=== PATIENT | male | born 1990 | race Caucasian/White ===

== ENCOUNTER → 2019-10-23 09:44 | Outpatient (BNVA) | payer MEDICAID, SELFPAY | PROVIDERS: Family Provider Family Medicine; PCP Family Medicine; Visit Provider Psychiatry & Neurology Psychiatry | DX: F63.81 Intermittent explosive disorder (principal); F70 Mild intellectual disabilities; F17.200 Nicotine dependence, unspecified, uncomplicated | CPT/HCPCS: 99213 ==

== ENCOUNTER → 2020-01-15 07:21 | Outpatient (BNVA) | payer MEDICAID, SELFPAY | PROVIDERS: Family Provider Family Medicine; PCP Family Medicine; Visit Provider Psychiatry & Neurology Psychiatry | DX: F63.81 Intermittent explosive disorder (principal); F70 Mild intellectual disabilities; F17.200 Nicotine dependence, unspecified, uncomplicated | CPT/HCPCS: 99213 ==

== ENCOUNTER → 2020-03-04 07:31 | Outpatient (BNVA) | payer MEDICAID, SELFPAY | PROVIDERS: Family Provider Family Medicine; PCP Family Medicine; Visit Provider Psychiatry & Neurology Psychiatry | DX: F63.81 Intermittent explosive disorder (principal); F70 Mild intellectual disabilities; F17.200 Nicotine dependence, unspecified, uncomplicated | CPT/HCPCS: 99214 ==

== ENCOUNTER 2020-03-19 19:10 | Inpatient (IN) | payer MEDICAID, SELFPAY ==
[2020-03-19 19:13] VITALS: BP 130/81; PULSE 125; RESP 20; TEMP 37.3; O2SAT 95; BMI 20.5
--- NOTE | 2020-03-19 19:22 | ECG_ITS ---
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 Measurements Intervals [place] Rate: 119 P: 67 NH: 112 QRS: 87 QRSD: 87 T: 49 QT: 294 QTc: 414 Interpretive Statements SINUS TACHYCARDIA WITH SHORT NH INTERVAL POSSIBLE RIGHT VENTRICULAR CONDUCTION DELAY [RSR (QR) IN V1/V2] No previous ECG available for comparison Electronically Signed On 03-20-2020 17:09:20 CDT by Jeniffer Holland M.D. [id number]
--- NOTE | 2020-03-19 19:30 | PC.NURSE ---
DENIES ANY SI OR HI. COAL WEIGHER STATES HE HAS BECOME FOR VIOLENT ANGRY THEN DEPRESSED WITH CRYING.
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
[2020-03-19] MEDS: CLONazepam 1 mg Tablet 0.5 MG PO (19:42)
[2020-03-19 20:08] LABS: Basophils # 0.1 10^3/uL (0.0-0.1); Basophils % 0.5 %; Eosinophils % 0.2 %; Hematocrit 47.5 % (42.0-52.0); Hemoglobin 15.4 g/dL (11.7-16.6); Lymphocytes # 1.4 10^3/uL (0.8-4.8); Lymphocytes % 11.4 %; Mean Corpuscular HGB Conc 32.4 g/dL (30.0-36.0); Mean Corpuscular Hemoglobin 28.9 pg (28.0-34.0); Mean Corpuscular Volume 89.3 fL (80-94); Mean Platelet Volume 10.6 fL (7.4-10.4); Monocytes # 0.5 10^3/uL (0.2-0.9); Monocytes % 4.2 %; Neutrophils # 10.4 10^3/uL (1.8-7.7); Neutrophils % 83.3 %; Nucleated Red Blood Cells % 0 %; Platelet Count 264 10^3/cmm (130-400); Red Blood Count 5.32 10^6/uL (4.1-5.3); Red Cell Distribution Width 13.4 % (12.1-15.1); White Blood Count 12.4 10^3/uL (4.0-10.0)
[2020-03-19 20:35] LABS: Alanine Aminotransferase 32 U/L (0-41); Albumin Level 5.6 g/dL (3.5-5.2); Alkaline Phosphatase 100 IU/L (40-130); Anion Gap 17.1 (5-19); Aspartate Amino Transferase 22 U/L (0-40); Blood Urea Nitrogen 12 mg/dL (6-20); Carbon Dioxide 27 mmol/L (22-29); Chloride 102 mmol/L (98-107); Glucose 95 mg/dL (65-115); Osmolality Calculated 290 mOsm/kg (285-295); Phenytoin Dilantin 0.8 ug/mL (10-20); Potassium 4.1 mmol/L (3.5-5.1); Sodium 142 mmol/L (136-145); Thyroid Stimulating Hormone 0.48 uIU/mL (0.27-4.20); Total Bilirubin 0.3 mg/dL (0.15-1.2); Total Protein 7.6 g/dL (6.6-8.7); Valproic Acid Level 2.8 ug/mL (50-100)
[2020-03-19 20:37] LABS: Acetaminophen < 5.0 ug/mL (10-30); Alcohol Level < 10 mg/dL (0-10); Salicylate < 0.3 mg/dL (3-10)
[2020-03-19 20:51] LABS: Lithium 0.1 mmol/L (0.6-1.2)
[2020-03-19] MEDS: LORazepam 2 mg Tablet PO (22:36)
[2020-03-19 22:49] VITALS: BP 124/89; PULSE 112; RESP 16; O2SAT 98
[2020-03-19 23:45] LABS: Amphetamines Screen Urine Negative (Negative); Barbiturates Screen Urine Negative (Negative); Benzodiazepines Screen Urine Negative (Negative); Cocaine Screen Urine Negative (Negative); Opiate Screen Urine Negative (Negative); PCP Screen Urine Negative (Negative); THC Screen Urine Negative (Negative)
[2020-03-19 23:54] VITALS: BP 108/75; PULSE 95; RESP 15; TEMP 36.8; O2SAT 97
--- NOTE | 2020-03-20 04:46 | PC.NURSE ---
when pt arrived to floor, prn sleep and anxiety meds were offered, pt refused.
[2020-03-20 06:00] VITALS: BP 102/67; PULSE 83; RESP 16; TEMP 36.6; O2SAT 99
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
[2020-03-20] MEDS: quetiapine 100 mg Tablet PO (11:05)
[2020-03-20] MEDS: cetirizine 10 mg Tablet PO (11:05)
[2020-03-20] MEDS: OLANZapine 5 mg ODT PO (13:50)
--- NOTE | 2020-03-20 13:55 | PC.SOCIAL ---
guardian says that he is good with a prn for Madan at any time regardless if Madan wants it or not. guardian is ok with him being discharged whenever the doctor states he is ready for discharge. the guardian is good with medication changes as ordered by doctor.
[2020-03-20 14:00] VITALS: BP 96/63; PULSE 92; RESP 18; TEMP 36.7; O2SAT 99
--- NOTE | 2020-03-20 14:03 | PC.NURSE ---
Patient Behavior The physician went into the patients room to discuss plan of care. Patient had been demanding to go home and he told him it would not be today that he needed to adjust his medications. Patient was becoming agitated, posturing and gritting his teeth. Security and journeyman powerhouse operator were on stand by. After the physician left the room he was offered medication for his anxiety and agreed to take Zyprexa Zydis.
[2020-03-20] MEDS: quetiapine 100 mg Tablet 250 MG PO (21:41)
[2020-03-20 22:00] VITALS: BP 95/59; PULSE 57; RESP 18; TEMP 36.8; O2SAT 98
[2020-03-21 06:00] VITALS: BP 87/50; PULSE 69; RESP 18; TEMP 36.7; O2SAT 99
[2020-03-21] MEDS: cetirizine 10 mg Tablet PO (08:46)
[2020-03-21] MEDS: quetiapine 100 mg Tablet PO (08:46)
--- NOTE | 2020-03-21 10:03 | PM.NPN ---
Subjective NPU Subjective: Interval history: Madan presents today reporting that he has managed the issue of having to stay, but when he was advised that he probably would not leave until tomorrow, his frustration returned, and he continued with the style of yesterday of saying ?you need to get my stuff together, I am leaving now?. Ultimately though he was able to calm himself. We agreed that we would continue the Zyprexa that he took as a prn yesterday, as he said he feels it was helpful. He has an appointment with his psychiatrist next week and the plan would be for them to figure out if they really feel like the Seroquel is more or less only helpful for sleep, then they could possibly use the Zyprexa as the standing medication. He slept fairly well last night. 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 We had a long discussion about the side effects of medications and how he thinks of them, and he seemed to benefit from our discussion of how they come up with those lists of side effects as things that could happen but not things that will happen. Mental Status Exam MSE Comments: This is a diminutive, white male, with adequate dress, grooming, and eye contact. No abnormal movements except for mild psychomotor retardation. Cooperative with exam in no acute distress. Speech was normal rate, slightly decreased volume. Mood described as better; affect congruent. Thought process, linear. Thought content: patient denied any suicidal or homicidal ideation, there were no delusions reported or noted, patient denied any auditory or visual hallucinations. Attention and concentration were intact, and memory appeared reliable. Insight and judgment are limited, and intellectual ability is impaired. Vitals/I&O/Wt Last Vital Signs Temp 98.0 F 03/21/20 22:00 Pulse 63 03/21/20 22:00 Resp 18 03/21/20 22:00 BP 114/76 03/21/20 22:00 Pulse Ox 98 03/21/20 22:00 Data NPU : 03/19/20 19:55 03/19/20 19:55 A&P Additional A&P Information (1) Acute anxiety: (2) Mild intellectual disability: (3) Intermittent explosive disorder: (4) Continuous nicotine dependence: This is a 29 year old, white male, with intermittent explosive disorder, intellectual disability, mild and nicotine dependence, who presents with recent struggles at his residential with managing his outbursts, who presents relatively resistant to collaboration with the treatment team. Continue current medication. Continue Zyprexa 5 mg q. afternoon and allow that he had his outpatient provider to decide whether he likes the Zyprexa better than the Seroquel and what adjustments to make next week. Encourage individual, group, and milieu therapy. Will continue q 15-minute checks for safety. Involuntary Hold Information 96 Hour Hold: 96 Hour Involuntary Admission: No Attestations NPU Medical Necessity Statement*: Inpatient hospitalization is medically necessary, and the clinically appropriate intervention at this time. We will monitor medications and adjust as indicated. Likely length of stay 1-3 days. We will consider discharge tomorrow. Coding Level of Care Code Acute Prescriptionist for Tahir Acevedo
[2020-03-21] MEDS: OLANZapine 5 mg TABLET PO (12:37)
[2020-03-21 13:18] VITALS: BP 120/84; PULSE 85; RESP 18; TEMP 36.6; O2SAT 99
[2020-03-21] MEDS: quetiapine 100 mg Tablet 250 MG PO (20:59)
[2020-03-21 22:00] VITALS: BP 114/76; PULSE 63; RESP 18; TEMP 36.7; O2SAT 98
[2020-03-22 06:00] VITALS: BP 119/77; PULSE 98; RESP 17; TEMP 36.9; O2SAT 99
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
[2020-03-22 08:22] VITALS: BP 119/77; PULSE 98; RESP 17; TEMP 36.9; O2SAT 99
[2020-03-22] MEDS: OLANZapine 5 mg TABLET PO (08:52)
== END 2020-03-22 09:50 | disposition home or self-care (01) | DRG 883 ==
LOC: ER 19:44 → NP 22:46
PROVIDERS: Emergency Medicine; Admitting Provider Psychiatry & Neurology Psychiatry; Visit Provider Psychiatry & Neurology Psychiatry
DX: F63.81 Intermittent explosive disorder (principal); F70 Mild intellectual disabilities; F41.9 Anxiety disorder, unspecified; F17.220 Nicotine dependence, chewing tobacco, uncomplicated
CPT/HCPCS: 12345; 36415; 80053; 80156; 80164; 80178; 80185; 80306; 80307; 84443; 85025; 93005; 99284

== ENCOUNTER 2020-03-19 19:10 | Emergency (ER) | payer MEDICAID, SELFPAY | END 2020-03-19 22:51 | disposition admitted as inpatient to this hospital (09) | LOC: ER 03-21 18:02 | PROVIDERS: Emergency Provider Emergency Medicine | DX: F63.81 Intermittent explosive disorder (principal); F41.9 Anxiety disorder, unspecified; F17.210 Nicotine dependence, cigarettes, uncomplicated | CPT/HCPCS: 12345; 36415; 80053; 80156; 80164; 80178; 80185; 80306; 80307; 84443; 85025; 93005; 99284; 99285 ==

== ENCOUNTER → 2020-03-26 07:25 | Outpatient (BNVA) | payer MEDICAID, SELFPAY | PROVIDERS: Visit Provider Psychiatry & Neurology Psychiatry | DX: F63.81 Intermittent explosive disorder (principal); F70 Mild intellectual disabilities | CPT/HCPCS: 99214 ==

== ENCOUNTER → 2020-04-09 07:36 | Outpatient (BNVA) | payer MEDICAID, SELFPAY | PROVIDERS: Visit Provider Psychiatry & Neurology Psychiatry | DX: F63.81 Intermittent explosive disorder (principal); F70 Mild intellectual disabilities; F17.200 Nicotine dependence, unspecified, uncomplicated | CPT/HCPCS: 99213 ==

== ENCOUNTER → 2020-05-21 08:31 | Outpatient (BNVA) | payer MEDICAID, SELFPAY | PROVIDERS: Visit Provider Counselor Mental Health | DX: F41.9 Anxiety disorder, unspecified (principal); F70 Mild intellectual disabilities; F63.81 Intermittent explosive disorder | CPT/HCPCS: 90834 ==

== ENCOUNTER 2020-06-02 08:08 | Emergency (ER) | payer MEDICAID, SELFPAY ==
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
[2020-06-02 08:14] VITALS: BP 116/87; PULSE 126; RESP 16; TEMP 37.4; O2SAT 99; BMI 19.0
--- NOTE | 2020-06-02 09:06 | PC.NURSE ---
Wound dressing applied to left posterior thigh.
== END 2020-06-02 09:07 | disposition home or self-care (01) ==
PROVIDERS: Emergency Provider Physician Assistant
DX: S81.812A Laceration without foreign body, left lower leg, initial encounter (principal); W23.0XXA Caught, crushed, jammed, or pinched between moving objects, initial encounter; F17.220 Nicotine dependence, chewing tobacco, uncomplicated
CPT/HCPCS: 12001; 12345; 99283

== ENCOUNTER → 2020-06-05 07:40 | Outpatient (BNVA) | payer MEDICAID, SELFPAY | PROVIDERS: Visit Provider Psychiatry & Neurology Psychiatry | DX: F63.81 Intermittent explosive disorder (principal); F70 Mild intellectual disabilities; F17.200 Nicotine dependence, unspecified, uncomplicated; F60.3 Borderline personality disorder | CPT/HCPCS: 99213 ==

== ENCOUNTER → 2020-08-28 07:27 | Outpatient (BNVA) | payer MEDICAID, SELFPAY | PROVIDERS: Visit Provider Psychiatry & Neurology Psychiatry | DX: F63.81 Intermittent explosive disorder (principal); F70 Mild intellectual disabilities; F17.200 Nicotine dependence, unspecified, uncomplicated | CPT/HCPCS: 99213 ==

== ENCOUNTER → 2020-12-18 07:26 | Outpatient (BNVA) | payer MEDICAID, SELFPAY | PROVIDERS: Visit Provider Psychiatry & Neurology Psychiatry | DX: F70 Mild intellectual disabilities; F17.200 Nicotine dependence, unspecified, uncomplicated; F63.81 Intermittent explosive disorder | CPT/HCPCS: 99213 ==

== ENCOUNTER → 2021-03-17 09:18 | Outpatient (BNVA) | payer MEDICAID, SELFPAY | PROVIDERS: Visit Provider Psychiatry & Neurology Psychiatry | DX: F63.81 Intermittent explosive disorder (principal); F70 Mild intellectual disabilities; F17.200 Nicotine dependence, unspecified, uncomplicated | CPT/HCPCS: 99213 ==

== ENCOUNTER → 2021-06-09 09:18 | Outpatient (BNVA) | payer MEDICAID, SELFPAY | PROVIDERS: Visit Provider Psychiatry & Neurology Psychiatry | DX: F63.81 Intermittent explosive disorder (principal); F70 Mild intellectual disabilities; F17.200 Nicotine dependence, unspecified, uncomplicated | CPT/HCPCS: 99213 ==

== ENCOUNTER → 2021-09-08 09:17 | Outpatient (BNVA) | payer MEDICAID, SELFPAY | PROVIDERS: Visit Provider Psychiatry & Neurology Psychiatry | DX: F63.81 Intermittent explosive disorder (principal); F70 Mild intellectual disabilities; F17.200 Nicotine dependence, unspecified, uncomplicated | CPT/HCPCS: 99214 ==

== ENCOUNTER → 2021-09-30 09:17 | Outpatient (BNVA) | payer MEDICAID, SELFPAY | PROVIDERS: Visit Provider Psychiatry & Neurology Psychiatry | DX: F63.81 Intermittent explosive disorder (principal); F70 Mild intellectual disabilities; F17.200 Nicotine dependence, unspecified, uncomplicated | CPT/HCPCS: 99214 ==

== ENCOUNTER → 2021-10-28 08:45 | Outpatient (BNVA) | payer MEDICAID, SELFPAY | PROVIDERS: Visit Provider Psychiatry & Neurology Psychiatry | DX: F63.81 Intermittent explosive disorder (principal); F17.200 Nicotine dependence, unspecified, uncomplicated; F70 Mild intellectual disabilities | CPT/HCPCS: 99213 ==

== ENCOUNTER 2022-01-12 19:37 | Emergency (ER) | payer MEDICAID, SELFPAY ==
[2022-01-12 19:48] VITALS: BP 155/93; PULSE 122; RESP 18; TEMP 37.2; O2SAT 97; BMI 19.8
--- NOTE | 2022-01-12 19:51 | XRR_ITS ---
PROCEDURE INFORMATION: Exam: XR Left Shoulder Exam date and time: 01/12/2022 7:58 PM Age: 31 years old Clinical indication: Pain; Shoulder; Left; Additional info: Left shoulder pain TECHNIQUE: Imaging protocol: XR Left shoulder. Views: 2 or more views. COMPARISON: CR XR shoulder LT min 2V* [id number] 04/04/2021 10:56 AM FINDINGS: Bones/joints: Normal. Soft tissues: Normal. Other findings: Three views submitted. XR/XR shoulder LT min 2V* [id number] IMPRESSION: No acute findings.
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
[2022-01-12] MEDS: HYDROcodone-acetaminophen 5-325 mg Tablet 1 TAB PO (20:06)
--- NOTE | 2022-01-13 12:51 | DCPLANNER ---
Addendum entered by Trena Chen 02/04/22 20:31: Patient had a follow up appointment scheduled with ortho - patient did attend appointment. Addendum entered by Trena Chen 01/14/22 09:25: Patient has a follow up appointment scheduled for Sunday, January 16, 2022 at 8:[address] Chen at ortho. Clinic will call patient with appointment information. Original Note: communication and outreach manager had message to schedule a follow up appointment for patient with ortho. communication and outreach manager sent patients information to the front office staff at ortho. Patients information will be printed and reviewed. Clinic will call patient with appointment information.
== END 2022-01-12 20:22 | disposition home or self-care (01) ==
PROVIDERS: Emergency Provider Emergency Medicine
DX: S43.402A Unspecified sprain of left shoulder joint, initial encounter (principal); W22.8XXA Striking against or struck by other objects, initial encounter; F17.220 Nicotine dependence, chewing tobacco, uncomplicated
CPT/HCPCS: 73030; 99283

== ENCOUNTER → 2022-01-14 13:41 | Outpatient (BNVA) | payer MEDICAID, SELFPAY | PROVIDERS: Visit Provider Psychiatry & Neurology Psychiatry | DX: F63.81 Intermittent explosive disorder (principal); F70 Mild intellectual disabilities; F17.200 Nicotine dependence, unspecified, uncomplicated | CPT/HCPCS: 99214 ==

== ENCOUNTER → 2022-01-16 08:17 | Outpatient (BNVA) | payer MEDICAID, SELFPAY | PROVIDERS: Referring Provider Emergency Medicine; Visit Provider Orthopaedic Surgery | DX: S43.402A Unspecified sprain of left shoulder joint, initial encounter (principal); V02.90XA Pedestrian on foot injured in collision with two- or three-wheeled motor vehicle, unspecified whether traffic or nontraffic accident, initial encounter; F17.220 Nicotine dependence, chewing tobacco, uncomplicated | CPT/HCPCS: 99213 ==

== ENCOUNTER 2022-02-11 10:29 | Outpatient (CLI) | payer MEDICAID, SELFPAY ==
--- NOTE | 2022-02-11 10:46 | MR_ITS ---
WS: [id number] MRI LEFT SHOULDER HISTORY: Sprain LEFT shoulder. COMPARISON: Radiograph 01/12/2022 TECHNIQUE: Multiplanar sequences of the shoulder joint are submitted. Mild AC joint hypertrophy. Narrowing of the AC joint with small osteophytes. No subacromial or subdel toid fluid. Biceps tendon is in normal position. No os acromion. No fracture or marrow signal abnormalities. No muscle edema or atrophy. No rotator cuff tear or signi ficant tendinopathy. The rotator cuff interval is normal. No labral tear. MR/MR shoulder LT con* [id number] IMPRESSION: 1. Mild AC joint arthritis. 2. No rotator cuff tear or labral tear identified.
== END 2022-02-11 10:30 | disposition home or self-care (01) ==
LOC: RAD 10:32
PROVIDERS: Visit Provider Orthopaedic Surgery
DX: S43.402A Unspecified sprain of left shoulder joint, initial encounter (principal); X58.XXXA Exposure to other specified factors, initial encounter
CPT/HCPCS: 73221

== ENCOUNTER → 2022-02-12 12:50 | Outpatient (BNVA) | payer MEDICAID, SELFPAY | PROVIDERS: Visit Provider Psychiatry & Neurology Psychiatry | DX: F63.81 Intermittent explosive disorder (principal); F70 Mild intellectual disabilities; F17.200 Nicotine dependence, unspecified, uncomplicated | CPT/HCPCS: 99213 ==

== ENCOUNTER 2022-06-03 21:05 | Emergency (ER) | payer MEDICAID, SELFPAY ==
[2022-06-03 21:33] VITALS: BP 133/86; PULSE 96; RESP 17; TEMP 36.6; O2SAT 98
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
--- NOTE | 2022-06-03 23:42 | W.ED.HEATRA ---
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 He denies any loss conscious meals and having worsening headache since then he has had a constant headache since then he rates a 6 out of 10 denies any other injuries denies neck pain denies any vomiting. Associated symptoms: Deny nausea, neck pain or vomiting Review of Systems Const: Denies: fever(s), chills, body aches or change in appetite Eyes: Denies: blurry vision or eye discomfort ENMT: Denies: throat pain or dental pain Card: Denies: chest pain Resp: Denies: dyspnea GI: Denies: abdominal pain, nausea, vomiting or diarrhea : Denies: dysuria Musc: Denies: neck pain or back pain Skin/Breast: Denies: rash Neuro: Reports: headache(s) Psych: Denies: depression Mario/Lymph: Denies: easy bruising All/Imm: Denies: urticaria PFSH ED PFSH: Medical History Continuous nicotine dependence Intermittent explosive disorder Mild intellectual disability Psychiatric care Psychiatric care Social History Smoking and tobacco status: current every day smoker smokeless tobacco Smokeless tobacco user: chewing tobacco Smokeless tobacco details: 1 can/day Quit status (tobacco): not considering quitting Second hand smoke exposure: No Smoking risk assessment/counseling performed?: Yes Tobacco counseling given: counseling >3 minutes Physical Exam Const: COMMON NORMALS: no acute distress, patient oriented x3 and healthy appearing HENMT: COMMON NORMALS: normocephalic and atraumatic HEAD & SCALP: normocephalic and atraumatic Eye: COMMON NORMALS: Equal, round and reactive pupils present and EOMs intact bilaterally PUPIL: Yes Equal, round and reactive pupils present Neck/C-Spine: COMMON NORMALS: full ROM and supple Chest: COMMONS NORMALS: normal inspection of the chest and normal palpation of entire chest wall Resp: COMMON NORMALS: normal respiratory effort, No retractions, No use of accessory muscles and clear to auscultation bilaterally AUSCULTATION: clear to auscultation bilaterally Cardio: COMMON NORMALS: regular rate, regular rhythm and No murmurs present (Cardio) RATE: regular rate RHYTHM: regular rhythm GI: COMMON NORMALS: Normal to inspection, nondistended, normoactive bowel sounds present, Soft to palpation, non-tender and no masses PALPATION: Yes Soft to palpation Extremity: COMMON NORMALS: normal to inspection and full ROM Neuro: COMMON NORMALS: patient oriented x3, moves all extremities and no focal motor deficits Psych: COMMON NORMALS: mental status grossly normal, Normal thought process present and cooperative THOUGHT PROCESS: Normal thought process present Skin: COMMON NORMALS: no rashes or lesions noted and no wounds GENERAL SKIN EXAM: no rashes or lesions noted Course Vital Signs: Vital signs: Vital Signs Temperature 98 F 06/03/22 21:33 Pulse Rate 96 06/03/22 21:33 Respiratory Rate 17 06/03/22 21:33 Blood Pressure 133/86 06/03/22 21:33 Pulse Oximetry 98 06/03/22 21:33 Oxygen Delivery Me thod 06/03/22 21:33 MDM - Head Injury Medcial Decision Making 31-year-old male presents here after closed head injury he is well-appearing here and likely has a concussion head CT is normal he is stable for discharge he is to follow-up with PCP and return if worsening. Lab Data Radiology Impressions Head CT 06/03/22 21:47 IMPRESSION: 1. No fracture or intracranial hemorrhage. Discharge Plan Discharge Patient Disposition: Home Clinical Impression: Closed head injury Qualifiers: Encounter type: initial encounter Qualified Code(s): S09.90XA - Unspecified injury of head, initial encounter Condition: Stable Prescriptions: No Action ibuprofen 200 mg tablet 400 mg PO Q8H PRN (Reason: fever or pain) acetaminophen [Tylenol] 325 mg capsule 650 mg PO Q4H PRN (Reason: fever or pain) Zyrtec 10 mg capsule 10 mg PO DAILY artificial tears(hypromellose) 0.3 % drops 1 drop ophthalmic (eye) TID PRN (Reason: Dry Eyes) quetiapine 400 mg tablet 400 mg PO .qhs Qty: 30 11RF quetiapine 100 mg tablet 150 mg PO QAM Qty: 45 11RF bismuth subsalicylate [Pepto-Bismol] 262 mg/15 mL Suspension 524 mg PO Q4H PRN (Reason: upset stomach) fluticasone propionate [Flonase Allergy Relief] 50 mcg/actuation [place],Suspension 2 spray INTRANASAL DAILY Plus 29 mg iron- 1 mg Tablet 1 tab PO DAILY Naprosyn 500 mg tablet 500 mg PO BID PRN (Reason: pain) Qty: 20 0RF Discharge Orders: Discharge ED (Routine); Ordered 06/03/22 Ordered By: Alicia Altamirano Discharge Diet: Advance as tolerated Discharge Activity: Resume usual activity Patient Instructions: Concussion/Head Injury - Adult Stand Alone Forms: Work/School Release Coding Level of Care Code ED [employer] for [employer]ir Acevedo
[2022-06-03] MEDS: HYDROcodone-acetaminophen 5-325 mg Tablet 1 TAB PO (23:49)
== END 2022-06-04 00:13 | disposition home or self-care (01) ==
PROVIDERS: Emergency Provider Emergency Medicine
DX: S09.90XA Unspecified injury of head, initial encounter (principal); V80.018A Animal-rider injured by fall from or being thrown from other animal in noncollision accident, initial encounter
CPT/HCPCS: 70450; 99284

== ENCOUNTER → 2022-08-25 08:38 | Outpatient (BNVA) | payer MEDICAID, SELFPAY | PROVIDERS: Referring Provider Family Medicine; Visit Provider Student in an Organized Health Care Education/Training Program | DX: S43.432A Superior glenoid labrum lesion of left shoulder, initial encounter (principal); W55.29XA Other contact with cow, initial encounter | CPT/HCPCS: 73030; 99204 ==

== ENCOUNTER 2022-10-14 14:26 | Outpatient (CLI) | payer MEDICAID, SELFPAY ==
--- NOTE | 2022-10-14 14:34 | MR_ITS ---
WS: [id number] MRI LEFT SHOULDER NONCONTRAST TECHNIQUE: Sagittal T2, coronal T1, T2 and proton density imaging. Axial gradient PDE imaging. Patien t attempted but could not proceed with the arthrogram intra-articular gadolinium injection. Consider arthrogram with sedation if clinically indicated CLINICAL INFORMATION: PAIN/?SLAP TEAR COMPARISON: MRI February 11, 2022 FINDINGS: Mild degenerative narrowing at the AC joint. Mild narrowing of the subacromial space. Slight subacrom ial spurring. Normal supraspinatus. Normal infraspinatus. Normal teres minor. Normal subscapularis. N ormal biceps tendon in the bicipital groove. Biceps labral anchor appears grossly intact. Intra-articular biceps tendon appears intact. Normal bon e marrow signal in the humerus and glenoid. Small amount of cystic degenerative change greater tubero sity. Small lobulated ganglion cyst or fluid collection new from previous measuring 8 mm along the co racohumeral ligament and superior labrum. MR/MR shoulder LT wo con* [id number] IMPRESSION: 1. Mild degenerative arthritis AC joint with mild downsloping acromion. Slight impingement on the supraspinatus. 2. Rotator cuff is intact. 3. Normal biceps tendon in the bicipital groove. 4. Small lobulated ganglion cyst or fluid collection new from previous measuri ng 8 mm along the coracohumeral ligament and superior labrum. Consider small hui perior labral tear with paralabral cyst 5. No other suspicious findings.
== END 2022-10-14 14:27 | disposition home or self-care (01) ==
LOC: RAD 14:30
PROVIDERS: PCP Family Medicine; Visit Provider Student in an Organized Health Care Education/Training Program
DX: M19.012 Primary osteoarthritis, left shoulder (principal); M67.412 Ganglion, left shoulder
CPT/HCPCS: 73221; 73223

== ENCOUNTER → 2022-12-07 11:51 | Outpatient (BNVA) | payer MEDICARE, MEDICAID, SELFPAY | PROVIDERS: PCP Family Medicine; Visit Provider Student in an Organized Health Care Education/Training Program | DX: S43.432A Superior glenoid labrum lesion of left shoulder, initial encounter (principal); X58.XXXA Exposure to other specified factors, initial encounter | CPT/HCPCS: 99213 ==

== ENCOUNTER 2024-10-25 11:19 | Outpatient (RCR) | payer MEDICARE, MEDICAID, SELFPAY | END 2024-10-27 23:59 | disposition home or self-care (01) | LOC: SPT 11:19 | PROVIDERS: Visit Provider Family Medicine | DX: S43.432D Superior glenoid labrum lesion of left shoulder, subsequent encounter (principal); X58.XXXD Exposure to other specified factors, subsequent encounter | CPT/HCPCS: 97161 ==

== ENCOUNTER → 2025-02-21 08:13 | Outpatient (BNVA) | payer OTHER, SELFPAY | PROVIDERS: PCP Family Medicine; Visit Provider Psychiatry & Neurology Psychiatry | DX: F63.81 Intermittent explosive disorder (principal); Z79.899 Other long term (current) drug therapy | CPT/HCPCS: 80061; 83036 ==